=== PATIENT | female | born 1980 | race African-American/Black ===

== ENCOUNTER 2023-12-22 13:12 | Emergency (ER) | payer OTHER, SELFPAY ==
[2023-12-22 13:05] VITALS: BP 130/118; PULSE 80; RESP 23; TEMP 36.8; O2SAT 98
[2023-12-22 13:21] VITALS: PULSE 70; RESP 20; O2SAT 98
[2023-12-22] MEDS: Please add drug allergy info to patient profile. XX (13:34)
[2023-12-22 13:35] LABS: Basophils Percent Auto 0.3 % (0.2-1.2); Eosinophils Percent Auto 0.3 % (0-4.4); Hematocrit 38.1 % (37.0-47.0); Immature Granulocyte Absolute 0.02 K/mm3 (0.00-0.031); Immature Granulocyte Percent A 0.3 % (0-0.5); Lymphocytes Absolute Auto 1.45 K/mm3 (0.9-3.2); Lymphocytes Percent Auto 22.4 % (18.3-44.2); Mean Corpuscular HGB Conc 34.1 g/dl (32-36); Mean Corpuscular Volume 96.7 fl (80-100); Mean Platelet Volume 9.9 fl (7.4-10.4); Monocytes Absolute Auto 0.7 K/mm3 (0.1-0.6); Monocytes Percent Auto 10.5 % (2.6-8.5); Neutrophils Absolute Auto 4.3 K/mm3 (1.3-6.7); Neutrophils Percent Auto 66.2 % (45.5-73.1); Platelet Count Result 303 k/mm3 (150-375); Red Blood Count 3.94 M/mm3 (4.2-5.4); White Blood Count 6.5 K/mm3 (4.5-10.0)
[2023-12-22] MEDS: LORazepam INJ (*CRX) 2 MG/ML VIAL 1 MG IV PUSH (13:36)
--- NOTE | 2023-12-22 13:38 | PC.NURSE ---
pt states they are unable to urinate at this time and would like to have time to urinate in a cup before getting a straight cath. pt educated on using call light with any urge to urinate
[2023-12-22 13:45] VITALS: O2SAT 100
[2023-12-22 13:46] LABS: Ethanol 273 mg/dL (<10)
[2023-12-22 13:53] LABS: Alanine Aminotransferase 100 U/L (6-35); Albumin Level 4.5 g/dL (3.5-5.1); Alkaline Phosphatase 61 U/L (38-126); Anion Gap 15 mmol/L (8-16); Aspartate Amino Transferase 135 U/L (14-36); Bilirubin,Total 0.8 mg/dL (0.2-1.3); Blood Urea Nitrogen 19 mg/dL (7-17); Calcium 9.2 mg/dL (8.4-10.2); Carbon Dioxide 24 mmol/L (22-30); Chloride 100 mmol/L (98-107); Estimated CRCL calculation 109 ml/min; Estimated Glomerular Filt Rate > 60; Glucose 113 mg/dL (65-110); Potassium 3.5 mmol/L (3.4-5.0); Sodium 139 mmol/L (137-145)
[2023-12-22 14:00] VITALS: O2SAT 99
[2023-12-22 14:01] VITALS: BP 167/104; O2SAT 100
[2023-12-22 14:06] LABS: Influenza A QL RT-PCR Negative (Negative); Influenza B QL RT-PCR Negative (Negative); SARS-CoV-2 RNA PCR Negative (Negative)
[2023-12-22 14:15] VITALS: O2SAT 99
[2023-12-22 14:16] LABS: Thyroid Stimulating Hormone 0.757 uIU/mL (0.465-4.680)
--- NOTE | 2023-12-22 15:06 | ED.GENADULT ---
HPI - General Adult General Chief complaint: Anxiety Stated complaint: anxiety Time Seen by Provider: 12/22/23 13:15 History of Present Illness HPI narrative: Patient is a 43-year-old female who [place] the police [place] with an anxiety attack. Patient was fired from her job earlier this morning and then was picked up on a traffic warrant. Will being processed at retirement she experienced a panic attack. She was not medicated by EMS. She reports depression but no SI or HI. No chest pain or chest pressure. No vomiting. Related Data Allergies Allergy/AdvReac Type Severity Reaction Status Date / Time No Known Allergies Allergy Verified 12/22/23 13:32 PMFSH Social History Social History Substance use type: marijuana and prescription drug Exam Narrative: GENERAL: Anxious-appearing, well-nourished, and in no acute distress. HEAD: Normocephalic, atraumatic. ENT: Mucous membranes moist. NECK: Supple. CHEST: Clear to auscultation. No respiratory distress. HEART: Regular rate and rhythm. Normal peripheral pulses. ABDOMEN: Soft, nontender, nondistended. EXTREMITIES: Normal range of motion. No edema. SKIN: Warm, dry, no rash. NEURO: Alert and oriented x3. PSYCH: Anxious and tearful. Course Course Emergency Course: Patient found be quite intoxicated. She tried walk out of the ER. She has gotten back to her room and IV removed. She is encouraged to find a ride and were going to help call a friend. Patient then walked out of the facility again. Vital Signs Vital signs: Vital Signs Temperature 98.2 F 12/22/23 13:05 Pulse Rate 80 12/22/23 13:05 Respiratory Rate 23 H 12/22/23 13:05 Blood Pressure 130/118 H 12/22/23 13:05 Pulse Oximetry 98 12/22/23 13:05 Oxygen Delivery Room Air 12/22/23 13:05 Temperature 98.2 F 12/22/23 13:05 Pulse Rate 70 12/22/23 13:21 Respiratory Rate 20 12/22/23 13:21 Blood Pressure 167/104 H 12/22/23 14:01 Pulse Oximetry 99 12/22/23 14:15 Oxygen Delivery Room Air 12/22/23 13:05 Medical Decision Making Vital Signs Vital Signs: Vital Signs Temperature 98.2 F 12/22/23 13:05 Pulse Rate 80 12/22/23 13:05 Respiratory Rate 23 H 12/22/23 13:05 Blood Pressure 130/118 H 12/22/23 13:05 Pulse Oximetry 98 12/22/23 13:05 Oxygen Delivery Room Air 12/22/23 13:05 Temperature 98.2 F 12/22/23 13:05 Pulse Rate 70 12/22/23 13:21 Respiratory Rate 20 12/22/23 13:21 Blood Pressure 167/104 H 12/22/23 14:01 Pulse Oximetry 99 12/22/23 14:15 Oxygen Delivery Room Air 12/22/23 13:05 Lab Data 12/22/23 13:28 12/22/23 13:28 Labs: Lab Results 12/22/23 12/22/23 Range/Units 13:20 13:28 WBC 6.5 (4.5-10.0) K/mm3 RBC 3.94 L (4.2-5.4) M/mm3 Hgb 13.0 (12.0-15.0) g/dL Hct 38.1 (37.0-47.0) % MCV 96.7 (80-100) fl MCH 33.0 (26-34) pg MCHC 34.1 (32-36) g/dl RDW 15.0 H (11.5-14.5) % Plt Count 303 (150-375) k/mm3 MPV 9.9 (7.4-10.4) fl Immature Gran % (Auto) 0.3 (0-0.5) % Neut % (Auto) 66.2 (45.5-73.1) % Lymph % (Auto) 22.4 (18.3-44.2) % [place] % (Auto) 10.5 H (2.6-8.5) % Eos % (Auto) 0.3 (0-4.4) % Baso % (Auto) 0.3 (0.2-1.2) % Lymph # (Auto) 1.45 (0.9-3.2) K/mm3 [place] # (Auto) 0.7 H (0.1-0.6) K/mm3 Eos # (Auto) 0.0 (0-0.3) K/mm3 Baso # (Auto) 0.0 (0.0-0.1) K/mm3 Abs Immat Gran (auto) 0.02 (0.00-0.031) K/mm3 Absolute Neuts (auto) 4.3 (1.3-6.7) K/mm3 Absolute Nucleated RBC 0.0 (0.0-0.012) K/mm3 Nucleated RBC % 0.0 (0.0-0.2) % Sodium 139 (137-145) mmol/L Potassium 3.5 (3.4-5.0) mmol/L Chloride 100 (98-107) mmol/L Carbon Dioxide 24 (22-30) mmol/L Anion Gap 15 (8-16) mmol/L BUN 19 H (7-17) mg/dL Creatinine 0.60 L (0.7-1.0) mg/dL Estim Creat Clear Calc 109 ml/min Estimated GFR > 60 (59 - ) Glucose 113 H (65-110) mg/dL Calcium 9.2 (8.4-10.2) mg/dL
--- NOTE | 2023-12-22 15:13 | PC.NURSE ---
pt attempted to leave without telling staff. noticed pt in waiting room and calmly directed them back to room. removed pt iv and educated pt to find a ride home or they will have to stay to sober up. pt agreed to stay in room and is trying to call friends/family for transportation
--- NOTE | 2023-12-22 15:20 | PC.NURSE ---
pt left without telling staff. pt did not drive here and has no vehicle to drive. attempted to day camp counselor pt with no success. pt walks away with steady gait. no signature obtained
== END 2023-12-22 15:41 | disposition left against medical advice (07) ==
PROVIDERS: Emergency Provider Emergency Medicine; PCP Internal Medicine Gastroenterology
DX: F10.129 Alcohol abuse with intoxication, unspecified (principal); Y90.8 Blood alcohol level of 240 mg/100 ml or more; Z11.52 Encounter for screening for COVID-19
CPT/HCPCS: 36415; 80053; 80307; 84443; 85025; 87636; 96374; 99284; J2060